=== PATIENT | female | born 2000 | race Caucasian/White ===

== ENCOUNTER 2020-07-20 15:37 | Emergency (ER) | payer OTHER ==
[~2020-07-20] VITALS: Ht 160 cm; Wt 88.9 kg
[2020-07-20 15:41] VITALS: BP 108/79
[2020-07-20] MEDS ORDERED: KETOROLAC 15 MG/ML VIAL IVP ONE (16:10)
--- NOTE | 2020-07-20 16:51 | NUR ---
20 YEAR OLD FEMALE COMPLAINS OF RIGHT WRIST PAIN X YESTERDAY. PT STATES THAT SHE WAS HIKING AND THEN FELL ONTO HER RIGHT WRIST. SITE IS INFLAMMATION, DISCOLORED, AND HARDENED. CAP REFILL < 3 SEC, RADIAL PULSE +3. PT AOX4, BREATHING EVEN AND UNLABORED, SKIN WARM AND DRY. BED IN LOWEST POSITION, LOCKED, BED RIAL UPX1. PMH - DENIES ALLERGIES - NKA
[2020-07-20] MEDS ORDERED: LIDOCAINE 2% 1000 MG/50 ML VIAL INJ ONE (16:55)
--- NOTE | 2020-07-20 17:32 | NUR ---
ERMD AT BEDSIDE FOR PROCEDURE
[2020-07-20] MEDS ORDERED: fentaNYL citrate 0.05 MG/ML VIAL IVP ONE (18:10)
--- NOTE | 2020-07-20 18:25 | NUR ---
ERMD AT BEDSIDE FOR PROCEDURE WITH EMT TO PLACE SPLINT
--- NOTE | 2020-07-20 18:34 | NUR ---
CONSENT SIGNED FOR TDMOE
--- NOTE | 2020-07-20 18:48 | NUR ---
PT ALERT AND AWAKE, BREATHING EVEN AND UNLABORED. NO DISTRESS NOTED. WILL CONTINUE TO MONITOR.
--- NOTE | 2020-07-20 19:20 | NUR ---
Patient discharged with v/s stable. Written and verbal after care instructions about wrist fracture given and explained. Patient alert, oriented and verbalized understanding of instructions. Ambulatory with steady gait. All questions addressed prior to discharge. ID band removed. Patient advised to follow up with PMD. Rx of motrin given. Patient educated on indication of medication including possible reaction and side effects. Opportunity to ask questions provided and answered.
[2020-07-20 19:21] VITALS: BP 141/89
== END 2020-07-20 19:20 | disposition home or self-care (01) ==
LOC: MED 15:37
DX: S52.611A Displaced fracture of right ulna styloid process, initial encounter for closed fracture (principal); W19.XXXA Unspecified fall, initial encounter; Y93.89 Activity, other specified; Y92.89 Other specified places as the place of occurrence of the external cause; Y99.8 Other external cause status
CPT/HCPCS: 25605; 73100; 73110; 81025; 90471; 90715; 96374; 96375; 99284; J1885; J2001; J3010; Q0092

== ENCOUNTER 2022-08-24 14:54 | Emergency (ER) | payer OTHER ==
[~2022-08-24] VITALS: Ht 157.5 cm; Wt 85.5 kg
[2022-08-24 15:28] VITALS: BP 153/98
[2022-08-24] MEDS ORDERED: ONDA-188 SL (16:51)
--- NOTE | 2022-08-24 17:00 | NUR ---
Patient discharged with v/s stable. Written and verbal after care instructions given and explained. Patient alert, oriented and verbalized understanding of instructions. Ambulatory with steady gait. All questions addressed prior to discharge. ID band removed. Patient advised to follow up with PMD. Rx of ZOFRAN ODT given. Patient educated on indication of medication including possible reaction and side effects. Opportunity to ask questions provided and answered.
== END 2022-08-24 17:01 | disposition home or self-care (01) ==
LOC: MED 14:54
DX: J06.9 Acute upper respiratory infection, unspecified (principal); Z20.822 Contact with and (suspected) exposure to COVID-19; R11.0 Nausea; R51.9 Headache, unspecified; Z79.899 Other long term (current) drug therapy
CPT/HCPCS: 99283